=== PATIENT | male | born 1945 | race Caucasian/White ===

== ENCOUNTER 2017-07-20 18:42 | Inpatient (IN) | payer MEDICARE, OTHER ==
[2017-07-20] VITALS (113 sets, daily range): BP systolic 190; BP diastolic 101; PULSE 88; TEMP 97; O2SAT 94–99
[~2017-07-20] VITALS: Ht 167.6 cm; Wt 64.2 kg
[2017-07-20 19:26] LABS: HEMATOCRIT 44.3 % (42.0-52.0); HEMOGLOBIN 15.5 g/dl (13.5-18.0); MEAN CELL VOLUME 101 fl (80.0-100.0); MEAN CORPUSCULAR HEMOGLOBIN 35 pg (27.0-31.0); MEAN CORPUSCULAR HGB CONC 35 g/dl (33.0-37.0); MEAN PLATELET VOLUME 10.4 fl (7.4-10.4); PLATELET COUNT 460 K/mm3 (130-400); WHITE BLOOD COUNT 12.4 K/mm3 (4.8-10.8)
[2017-07-20 19:35] LABS: ARTERIAL BLD GAS O2 SATURATION 96.3 % (92-100); ARTERIAL BLD GAS TCO2 CT 14.6; ARTERIAL BLOOD GAS BASE EXCESS -8.9 (-2-2); ARTERIAL BLOOD GAS HCO3 13.9 meq/L (22-26); ARTERIAL BLOOD GAS PHT 7.38 C (7.35-7.45); ARTERIAL BLOOD GAS PO2 88.3 mmHg (80-100); ARTERIAL BLOOD GAS PO2T 88.3 (80-100); ARTERIAL BLOOD GAS pH 7.38 (7.35-7.45); OXYHEMOGLOBIN 95.4 %
[2017-07-20 19:35] LABS: ADD PATHOLOGY DIFF REVIEW NO
[2017-07-20 19:36] LABS: ALLEN TEST NO; ATS? YES
[2017-07-20 19:37] LABS: COLLECTION METHOD CLEAN CATCH
[2017-07-20] MEDS ORDERED: DESYREL 50MG50 MG PO (19:39)
[2017-07-20] MEDS ORDERED: COREG 6.256.25 MG/TA PO (19:40)
[2017-07-20] MEDS ORDERED: ATARAX 25MG25 MG/TAB PO (19:40)
[2017-07-20] MEDS ORDERED: PRINIVIL40 MG PO (19:41)
[2017-07-20] MEDS ORDERED: GLUCOPHAGE500 MG/TAB PO (19:41)
[2017-07-20 19:42] LABS: ADJUSTED CALCIUM 10.1 mg/dL (8.4-10.2); ALANINE AMINOTRANSFERASE 91 U/L (21-72); ALBUMIN 4.8 gm/dL (3.5-5.0); ALKALINE PHOSPHATASE 94 U/L (50-136); ANION GAP 26 mmol/L (7-16); BLOOD UREA NITROGEN 26 mg/dL (9-20); C-REACTIVE PROTEIN 0.8 mg/dL (0.0-0.9); CALCIUM 10.7 mg/dL (8.4-10.2); CARBON DIOXIDE 15 mmol/L (22-30); CHLORIDE 95 mmol/L (98-107); CREATININE, serum 1.25 mg/dL (0.66-1.25); LIPASE 93 U/L (23-300); POTASSIUM 5.3 mmol/L (3.4-5.0); SODIUM 136 mmol/L (137-145); TOTAL PROTEIN 8.2 gm/dL (6.4-8.2)
[2017-07-20] MEDS ORDERED: LEXAPRO 10MG10 MG PO (19:43)
[2017-07-20] MEDS ORDERED: ZOVIRAX 200MG200 MG PO (19:43)
[2017-07-20] MEDS ORDERED: CIALIS20 MG PO (19:44)
[2017-07-20] MEDS ORDERED: COUMADIN 1010 MG/TAB PO (19:44)
[2017-07-20] MEDS ORDERED: ANTABUSE 250MG250 MG PO (19:45)
[2017-07-20] MEDS ORDERED: NOVOLOG 100U100 U/M1 SQ (19:48)
[2017-07-20 19:49] LABS: GLUCOSE 412 mg/dL (74-106)
[2017-07-20] MEDS ORDERED: LANTUS100 U/ML SQ (19:49)
[2017-07-20 19:57] LABS: MUCOUS Present /lpf; PH 5 (5-8); SQUAMOUS EPITHELIAL None Seen /hpf; URINE APPEARANCE Clear; URINE BACTERIA None Seen /hpf; URINE BILIRUBIN Negative (NEGATIVE); URINE BLOOD 1+ (NEGATIVE); URINE COLOR Yellow; URINE GLUCOSE 3+ (NEGATIVE); URINE KETONE 2+ (NEGATIVE); URINE LEUKOCYTE ESTERASE Negative (NEGATIVE); URINE PROTEIN(semi-quant) 2+ (NEGATIVE); URINE RBC 0-2 /hpf; URINE UROBILINOGEN Negative (NEGATIVE); URINE WBC 0-2 /hpf
[2017-07-20 20:03] LABS: ACETONE,SERUM MODERATE
[2017-07-20 20:04] LABS: BAND 5 % (0-10); EOSINOPHIL 1 % (0-4); LYMPHOCYTE 11 % (20.0-51.0); MYELOCYTE 1 % (0-0); NEUTROPHILS 79 % (42.0-75.2); PLATELET ESTIMATE INCREASED (NORMAL); TOTAL CELLS COUNTED 100; TOXIC GRANULATION PRESENT
[2017-07-20 23:36] LABS: INR 1.1 (0.8-3.0); PROTHROMBIN TIME 12.5 SECONDS (9.7-12.8)
[2017-07-20 23:56] LABS: CALCIUM 10.1 mg/dL (8.4-10.2); CREATININE, serum 0.95 mg/dL (0.66-1.25); MAGNESIUM 1.6 mg/dL (1.6-2.3); PHOSPHOROUS 5.2 mg/dL (2.5-4.5); POTASSIUM 4.5 mmol/L (3.4-5.0)
[2017-07-21] VITALS (486 sets, daily range): BP systolic 131–178; BP diastolic 66–95; PULSE 71–91; TEMP 97–98.6; O2SAT 88–100
[2017-07-21 01:49] LABS: CALCIUM 9.9 mg/dL (8.4-10.2); CREATININE, serum 0.77 mg/dL (0.66-1.25); POTASSIUM 4.3 mmol/L (3.4-5.0)
[2017-07-21] MEDS ORDERED: ATARAX 25MG25 MG/TAB PO (02:43)
[2017-07-21 04:04] LABS: CALCIUM 9.4 mg/dL (8.4-10.2); CREATININE, serum 0.64 mg/dL (0.66-1.25); POTASSIUM 3.8 mmol/L (3.4-5.0)
[2017-07-21 06:11] LABS: CALCIUM 8.8 mg/dL (8.4-10.2); CREATININE, serum 0.58 mg/dL (0.66-1.25); POTASSIUM 3.6 mmol/L (3.4-5.0)
[2017-07-21 07:41] LABS: CALCIUM 8.7 mg/dL (8.4-10.2); CREATININE, serum 0.58 mg/dL (0.66-1.25); POTASSIUM 3.6 mmol/L (3.4-5.0)
[2017-07-21 09:47] LABS: CALCIUM 8.6 mg/dL (8.4-10.2); CREATININE, serum 0.56 mg/dL (0.66-1.25); POTASSIUM 3.5 mmol/L (3.4-5.0)
[2017-07-21 18:33] LABS: CREATININE, serum 0.53 mg/dL (0.66-1.25); POTASSIUM 4.1 mmol/L (3.4-5.0)
[2017-07-22 04:28] VITALS: BP 186/96; PULSE 95; TEMP 97.6
[2017-07-22 04:32] LABS: AMPHETAMINE URINE NEGATIVE; BARBITURATES URINE NEGATIVE; BENZODIAZEPINES URINE NEGATIVE; BUPRENORPHINE URINE NEGATIVE; METHADONE URINE NEGATIVE; OPIATES URINE NEGATIVE; OXYCODONE URINE NEGATIVE; PHENCYCLIDINE URINE NEGATIVE; PROPOXYPHENE URINE NEGATIVE; THC CANNABINOIDS URINE NEGATIVE; TRICYCLIC ANTIDEPRESS URINE NEGATIVE
[2017-07-22 07:22] VITALS: BP 184/90; PULSE 96; TEMP 98
[2017-07-22 07:45] LABS: CALCIUM 8.6 mg/dL (8.4-10.2); CREATININE, serum 0.53 mg/dL (0.66-1.25); MAGNESIUM 1.2 mg/dL (1.6-2.3); POTASSIUM 3.9 mmol/L (3.4-5.0)
[2017-07-22 11:36] VITALS: BP 149/79; PULSE 72; TEMP 97.8
[2017-07-22 16:08] VITALS: BP 163/83; PULSE 91; TEMP 98
[2017-07-22 19:46] VITALS: BP 171/86; PULSE 77; TEMP 97.6
[2017-07-22 23:29] VITALS: BP 192/98; PULSE 795; TEMP 98.2
[2017-07-23 03:05] VITALS: BP 172/81; PULSE 93; TEMP 97.9
[2017-07-23 07:05] LABS: CALCIUM 8.9 mg/dL (8.4-10.2); CREATININE, serum 0.57 mg/dL (0.66-1.25); MAGNESIUM 1.4 mg/dL (1.6-2.3)
[2017-07-23 08:00] VITALS: BP 184/90; PULSE 75; TEMP 97.4
[2017-07-23 08:09] LABS: INR 1.3 (0.8-3.0)
[2017-07-23 09:56] VITALS: BP 130/64; PULSE 88
[2017-07-23] MEDS ORDERED: MULTI VITAMINS1 TAB PO (11:03)
[2017-07-23] MEDS ORDERED: LEVEMIR100 U/ML SQ (11:04)
[2017-07-23] MEDS ORDERED: HCTZ 25MG TAB25 MG PO (11:04)
[2017-07-23] MEDS ORDERED: NORVASC 5MG5 MG/TAB PO (11:05)
[2017-07-23 11:35] VITALS: BP 157/74; PULSE 78; TEMP 98.2
[2017-07-23] MEDS ORDERED: NOVLOG SQ (16:05)
[2017-07-23 19:41] VITALS: BP 177/88; PULSE 104; TEMP 98
== END 2017-07-23 15:00 | DRG 639 ==
LOC: COL.ER 18:42 → ICU 20:32 → MEDICAL 20:32
PROVIDERS: Family Medicine; Internal Medicine; Nurse Practitioner Family; Physician Assistant
DX: E11.10 Type 2 diabetes mellitus with ketoacidosis without coma (principal); I16.0 Hypertensive urgency; I10 Essential (primary) hypertension; E83.42 Hypomagnesemia; Z86.711 Personal history of pulmonary embolism; Z79.01 Long term (current) use of anticoagulants; Z87.891 Personal history of nicotine dependence; F10.10 Alcohol abuse, uncomplicated
CPT/HCPCS: 99223-AI; 99233-AI; 99239; A9585; J0360; J1650; J1815; J3475; J3480; J7030; J7050

== ENCOUNTER → 2017-07-29 | Outpatient (REF) ==
[~2017-07-29] MED LIST: ANTABUSE 250MG250 MG PO; ATARAX 25MG25 MG/TAB PO; CIALIS20 MG PO; COREG 6.256.25 MG/TA PO; COUMADIN 1010 MG/TAB PO; DESYREL 50MG50 MG PO; GLUCOPHAGE500 MG/TAB PO; HCTZ 25MG TAB25 MG PO; LANTUS100 U/ML SQ; LEVEMIR100 U/ML SQ; LEXAPRO 10MG10 MG PO; MULTI VITAMINS1 TAB PO; NORVASC 5MG5 MG/TAB PO; NOVLOG SQ; NOVOLOG 100U100 U/M1 SQ; PRINIVIL40 MG PO; ZOVIRAX 200MG200 MG PO
[2017-07-29 05:11] LABS: CALCIUM 9.8 mg/dL (8.4-10.2); CREATININE, serum 0.99 mg/dL (0.66-1.25); MAGNESIUM 1.1 mg/dL (1.6-2.3); POTASSIUM 4.3 mmol/L (3.4-5.0)
== END ==
LOC: ZCOL.LAB 05:00
PROVIDERS: Internal Medicine
DX: T51.9 Toxic effect of unspecified alcohol (principal); I67.4 Hypertensive encephalopathy

== ENCOUNTER → 2017-08-21 | Outpatient (REF) ==
[~2017-08-21] MED LIST changes: +COUMADIN 3MG3 MG/TAB PO; +GLUCOPHAGE850 MG/TAB PO; +LEVEMIR FLEX100 U/ML SQ; +ZESTRIL 20MG TA20 MG PO
[2017-08-21 08:20] LABS: INR 5.9 (0.8-3.0); PROTHROMBIN TIME 70.4 SECONDS (9.7-12.8)
== END ==
LOC: ZCOL.LAB 07:16
PROVIDERS: Internal Medicine
DX: Z86.711 Personal history of pulmonary embolism (principal)

== ENCOUNTER 2017-11-17 14:06 | Emergency (ER) | payer MEDICARE, OTHER ==
[~2017-11-17] VITALS: Ht 167.6 cm; Wt 63.6 kg
[2017-11-17 14:10] VITALS: BP 152/87; TEMP 96.7
[2017-11-17 14:59] LABS: BASO % 0.5 % (0.0-2.0); EOS # 0.1 (0.0-0.7); GRAN # 3.7 (1.4-6.5); GRAN % 59.7 % (42.2-75.2); HEMATOCRIT 38.5 % (42.0-52.0); HEMOGLOBIN 13.8 g/dl (13.5-18.0); LYMPH # 1.8 (1.2-3.4); LYMPH % 29.3 % (20.0-51.0); MEAN CELL VOLUME 95 fl (80.0-100.0); MEAN CORPUSCULAR HEMOGLOBIN 34 pg (27.0-31.0); MEAN CORPUSCULAR HGB CONC 36 g/dl (33.0-37.0); MEAN PLATELET VOLUME 9.8 fl (7.4-10.4); MONO # 0.6 (0.1-0.6); MONO % 8.9 % (1.7-9.3); PLATELET COUNT 293 K/mm3 (130-400); RED BLOOD COUNT 4.07 M/mm3 (4.20-5.60); REDCELL DISTRIBUTION WIDTH-CV 11.9 % (11.5-14.5)
[2017-11-17 15:08] LABS: CALCIUM 9.4 mg/dL (8.4-10.2); CREATININE, serum 0.78 mg/dL (0.66-1.25); POTASSIUM 4.3 mmol/L (3.4-5.0)
[2017-11-17 15:09] LABS: INR 5.4 (0.8-3.0); PROTHROMBIN TIME 64.5 SECONDS (9.7-12.8)
[2017-11-17 16:18] VITALS: PULSE 92
== END 2017-11-17 16:19 | disposition home or self-care (01) ==
LOC: COL.ER 14:06
PROVIDERS: Physician Assistant
DX: S01.111A Laceration without foreign body of right eyelid and periocular area, initial encounter (principal); I10 Essential (primary) hypertension; I26.99 Other pulmonary embolism without acute cor pulmonale; E11.9 Type 2 diabetes mellitus without complications; R79.1 Abnormal coagulation profile; Z79.01 Long term (current) use of anticoagulants; W18.09XA Striking against other object with subsequent fall, initial encounter